=== PATIENT | male | born 1965 | race Caucasian/White ===

== ENCOUNTER 2022-10-11 17:02 | Emergency (ER) | payer OTHER, SELFPAY ==
[2022-10-11 17:22] VITALS: BP 128/82; PULSE 78; RESP 20; TEMP 36.3; O2SAT 97; BMI 26.6
--- NOTE | 2022-10-11 17:35 | ED_ITS ---
HPI - General Adult General Chief complaint: Ear/Nose/Throat Problem Stated complaint: Bad Earache, Rt Ear Time Seen by Provider: 10/11/22 17:23 Source: patient Mode of arrival: ambulatory Limitations: no limitations History of Present Illness HPI narrative: 57-year-old male coming in today complaining of ear pain started yesterday. Patient has been having congestion and sinus issues, has been using a Neti pot d aily. Was diagnosed with COVID 7 days ago. Aside from having sinus issue which he states are chronic he has been feeling fine until this ear pain started. He denies any fevers or chills. He states that his hearing is little bit muffled on that side. No pain opening closing his mouth. No drainage from the ear. Denies other symptoms. Related Data Home Medications Medication Instructions Recorded Confirmed etanercept 25 mg/0.5 mL 25 mg subcut QWEEK 10/11/22 10/11/22 subcutaneous solution (Enbrel) Previous Rx's Medication Instructions Recorded amoxicillin 875 mg-potassium 1 tab PO BID 7 days #14 tabs 10/11/22 clavulanate 125 mg tablet Allergies Allergy/AdvReac Type Severity Reaction Status Date / Time No Known Drug Allergies Allergy Verified 10/11/22 17:26 Review of Systems Status of ROS: Reports: 10 or more systems reviewed and unremarkable except as noted in History and below [facility] Social History Smoking Status: Former smoker What tobacco products do you use: cigarettes Smoking quit date/years: <= 15 years ago Do you use any of these nicotine containing products: None How often do you have a drink containing alcohol: 4 or more times a week How many standard drinks containing alcohol do you have on a typical day: 1 or 2 How often do you have six or more drinks on one occasion: Never AUDIT-C Alcohol total score: 4 Non-prescribed substance use: denies use Exam Narrative: Exam Narrative: Well-nourished well-developed patient in no acute distress. Alert and oriented. Answers questions appropriately. Mood and affect are appropriate. Thoughts are goal oriented and rational. No tangential or magical thinking noted. Patient speaks in full sentences without needing to catch their breath. Speech is not slurred or pressure. HEENT: Normocephalic atraumatic. Pupils are equally round reactive to light. Extraocular muscles are intact. Conjunctivae are moist without any icterus noted. Moist mucous membranes. Posterior pharynx is normal. Neck is soft without any lymphadenopathy or thyromegaly. No masses are appreciated. Right TM is bulging and dull, appears to have some debris behind the ear drum. Left TM is normal. Skin: Well perfused without any obvious rashes. Const: Vital Signs, click to edit/add: Vital Signs - 24 hr 10/11/22 17:22 Temperature 97.3 F L Pulse Rate [Pulse Oximeter] 78 Respiratory Rate 20 Blood Pressure [Ri ght Upper Arm] 128/82 Pulse Oximetry 97 Oxygen Delivery Me thod Room Air Course Vital Signs Vital signs: Initial Vital Signs Temperature 97.3 F L 10/11/22 17:22 Temperature Source Temporal Artery Scan 10/11/22 17:22 Pulse Rate 78 10/11/22 17:22 Pulse Rhythm 10/11/22 17:22 Respiratory Rate 20 10/11/22 17:22 Blood Pressure 128/82 10/11/22 17:22 Blood Pressure Mean 97 10/11/22 17:22 Blood Pressure Position Sitting 10/11/22 17:22 Pulse Oximetry 97 10/11/22 17:22 Oxygen Delivery Method 10/11/22 17:22 Vital Signs Temperature 97.3 F L 10/11/22 17:22 Pulse Rate 78 10/11/22 17:22 Respiratory Rate 20 10/11/22 17:22 Blood Pressure 128/82 10/11/22 17:22 Pulse Oximetry 97 10/11/22 17:22 Oxygen Delivery Method 10/11/22 17:22 Temperature 97.3 F L 10/11/22 17:22 Pulse Rate 78 10/11/22 17:22 Respiratory Rate 20 10/11/22 17:22 Blood Pressure 128/82 10/11/22 17:22 Pulse Oximetry 97 10/11/22 17:22 Oxygen Delivery Method 10/11/22 17:22 Medical Decision Making MDM Narrative Medical decision making narrative: 57-year-old male with a right-sided otitis media. Will treat with Augmentin twice a day for a week. I do recommend he follow up with primary care in 7-10 days for repeat examination to make sure that that ears clearing up given the amount of debris behind the eardrum. He may need ENT follow-up depending on the resolution of his symptoms. Discharge Plan Discharge Clinical Impression: Otitis media Patient Disposition: Home, Self-Care Condition: Stable Additional Instructions: Take all antibiotics as prescribed. Okay to take ibuprofen 600 mg every 8 hours as needed for discomfort. Always take with food. Okay to use a heating pad to the ear, do not apply heat directly to skin. You should follow-up with your primary care provider in 7-14 days for repeat examination to make sure that your ear infection has cleared up. In the event and that it has has not cleared up, you may need an appointment with ear nose and throat physician. Prescriptions: New amoxicillin-pot clavulanate 875-125 mg tablet 1 tab PO BID 7 Days Qty: 14 0RF No Action Enbrel 25 mg/0.5 mL solution 25 mg subcut QWEEK Stand Alone Forms: MyHealth Info Instructions
== END 2022-10-11 18:02 | disposition home or self-care (01) ==
LOC: ED 17:58
PROVIDERS: Emergency Provider Family Medicine
DX: H66.91 Otitis media, unspecified, right ear (principal)
CPT/HCPCS: 99282; 99283